=== PATIENT | female | born 1950 | race Caucasian/White ===

== ENCOUNTER 2017-08-06 16:29 | Emergency (ER) | payer BC ==
--- NOTE | 2017-08-06 17:55 | Emergency Department Record ---
History of Present Illness - General Chief Complaint: Hypertension Stated Complaint: HIGH BLOOD PRESSURE Time Seen by Provider: 08/06/17 17:31 Source: Patient Mode of Arrival: Ambulatory Limitations: No limitations - History of Present Illness Initial Comments: pt went for a procedure today and it was cancelled because pts bp is so high. it was 200/ pt states she took all her meds today. she is asymptomatic, no martin , no cp Onset/Timin -: Days(s) Timing: Unsure History of Same: Yes Improves With: Nothing Worsens With: Nothing Associated Symptoms: Denies other symptoms - [place] Coma Scale Eye Response: (4) Open spontaneously Motor Response: (6) Obeys commands Verbal Response: (5) Oriented [place] Total: 15 - Symptoms of Stroke Symptoms of stroke: Dizziness - Related Data Home Medications Medication Instructions Recorded Confirmed Last Taken Ascorbic Acid [Vitamin C] 500 mg PO DAILY 08/06/17 08/06/17 1 Day Ago ~08/05/17 B-Complex with Vitamin C [Vitamin 1 each PO DAILY 08/06/17 08/06/17 1 Day Ago B-Complex with Vit C] ~08/05/17 Calcium Carbonate/Vitamin D3 1 each PO DAILY 08/06/17 08/06/17 1 Day Ago [Calcium 500 + Vit D3 400 Tab] ~08/05/17 Cholecalciferol (Vitamin D3) 1,000 unit PO DAILY 08/06/17 08/06/17 1 Day Ago [Vitamin D3] ~08/05/17 Insulin Glargine,Hum.rec.anlog 160 unit SQ QAM 08/06/17 08/06/17 1 Day Ago [Lantus Solostar] ~08/05/17 Insulin Lispro [Humalog] 100 unit SQ ASDIR 08/06/17 08/06/17 1 Day Ago ~08/05/17 Allergies Allergy/AdvReac Type Severity Reaction Status Date / Time bacitracin Allergy Intermediate HIVES Verified 08/06/17 17:26 [From Neosporin ([id number])] bacitracin zinc Allergy Intermediate HIVES Verified 08/06/17 17:26 [From Neosporin ([id number])] neomycin sulfate Allergy Intermediate HIVES Verified 08/06/17 17:26 [From Neosporin ([id number])] polymyxin B Allergy Intermediate HIVES Verified 08/06/17 17:26 [From Neosporin ([id number])] latex Allergy RASH Verified 08/06/17 17:26 Travel Screening - Travel/Exposure Within Last 30 Days Have you traveled within the last 30 days?: No - Travel/Exposure Within Last Year Have you traveled outside the [place] in the last year?: No - Additonal Travel Details Have you been exposed to anyone with a communicable illness?: No - Travel Symptoms Symptom Screening: None Review of Systems Reviewed: No additional complaints except as noted below Constitutional: Reports: As per HPI. Denies: Chills, Fever, Malaise, Night sweats, Weakness, Weight change Eyes: Reports: As per HPI. Denies: Eye discharge, Eye pain, Photophobia, Vision change ENT: Reports: As per HPI. Denies: Congestion, Dental pain, Ear pain, Epistaxis , Hearing loss, Throat pain Respiratory: Reports: As per HPI. Denies: Cough, Dyspnea, Hemoptysis, Stridor, Wheezes Cardiovascular: Reports: As per HPI. Denies: Arrhythmia, Chest pain, Dyspnea on exertion, Edema, Murmurs, Orthopnea, Palpitations, Paroxysmal nocturnal dyspnea, Rheumatic Fever, Syncope Endocrine: Reports: As per HPI. Denies: Fatigue, Heat or cold intolerance, Polydipsia, Polyuria Gastrointestinal: Reports: As per HPI. Denies: Abdominal pain, Constipation, Diarrhea, Hematemesis, Hematochezia, Melena, Nausea, Vomiting Genitourinary: Reports: As per HPI. Denies: Abnormal menses, Discharge, Dyspareunia, Dysuria, Frequency, Hematuria, Incontinence, Retention, Urgency Musculoskeletal: Reports: As per HPI. Denies: Arthralgia, Back pain, Gout, Joint swelling, Myalgia, Neck pain Skin: Reports: As per HPI. Denies: Bruising, Change in color, Change in hair/ nails, Lesions, Pruritus, Rash Neurological: Reports: As per HPI. Denies: Abnormal gait, Confusion, Headache, Numbness, Paresthesias, Seizure, Tingling, Tremors, Vertigo, Weakness Psychiatric: Reports: As per HPI. Denies: Anxiety, Auditory hallucinations, Depression, Homicidal thoughts, Suicidal thoughts, Visual hallucinations Hematological/Lymphatic: Reports: As per HPI. 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 - Hx Genitourinary Disorders: No - ENDOCRINE Hx Endocrine Disorders: Yes Hx Diabetes: Yes - MUSCULOSKELETAL Hx Musculoskeletal Disorders: No - PSYCH Hx Psych Problems: No - HEMATOLOGY/ONCOLOGY Hx Hematology/Oncology Disorders: Yes Hx Cancer: Yes Hx Chemotherapy: No Hx Radiation Therapy: No Hx Blood Transfusions: Yes (after childbirth) Family Medical History Any Significant Family History?: Yes Hx Cancer: Mother *Cancer Comment: lymphoma Hx Diabetes: Mother Physical Exam - General General Appearance: Alert, Oriented x3, Cooperative, Mild distress - Head Head exam: Normal inspection - Eye Eye exam: Normal appearance, PERRL, EOMI Pupils: Normal accommodation - ENT ENT exam: Normal exam, Mucous membranes moist, Normal external ear exam, Normal orophraynx Ear exam: Normal external inspection. negative: External canal tenderness Nasal Exam: Normal inspection. negative: Discharge, Sinus tenderness Mouth exam: Normal external inspection, Tongue normal Teeth exam: Normal inspection. negative: Dental caries Throat exam: Normal inspection. negative: Tonsillar erythema, Tonsillar exudate - Neck Neck exam: Normal inspection, Full ROM. negative: Tenderness - Respiratory Respiratory exam: Normal lung sounds bilaterally. negative: Respiratory distress - Cardiovascular Cardiovascular Exam: Regular rate, Normal rhythm, Normal heart sounds - GI/Abdominal GI/Abdominal exam: Soft, Normal bowel sounds. negative: Tenderness - Rectal Rectal exam: Deferred - exam: Deferred - Extremities Extremities exam: Normal inspection, Full ROM, Normal capillary refill. negative: Tenderness - Back Back exam: Reports: Normal inspection, Full ROM. Denies: Muscle spasm, Rash noted, Tenderness - Neurological Neurological exam: Alert, CN II-XII intact, Normal gait, Oriented X3 - Psychiatric Psychiatric exam: Normal affect, Normal mood - Skin Skin exam: Dry, Intact, Normal color, Warm Course Vital Signs 08/06/17 17:16 Temperature 97.5 F L Pulse Rate 97 H Respiratory 20 Rate Blood Pressure 233/95 Pulse Ox 97 - Reevaluation(s) Reevaluation #1: 08/06/17 19:05 pts bp is163/77 Medical Decision Making - Lab Data Result diagrams: 08/06/17 18:10 08/06/17 18:10 Disposition Disposition: Discharge Clinical Impression: Hypertension Qualifiers: Hypertension type: essential hypertension Qualified Code(s): I10 - Essential ( primary) hypertension Disposition: Home, Self-Care Condition: (1) Good Instructions: Hypertension (ED) Additional Instructions: recheck blood pressure tomorrow at doctors office without fail. return sooner if worse. rest Forms: Patient Portal Access Quality - Quality Measures Quality Measures: N/A - Blood Pressure Screening Does Patient Have Any of the Following: Active Dx of HTN Blood Pressure Classification: Hypertensive Reading Systolic Measurement: 233 Diastolic Measurement: 95 Screening for High Blood Pressure: Patient Exclusion, Hx of HTN [[id number]]
[2017-08-06 18:20] LABS: BASO % 0.3 % (0-6); EOS % 1.2 % (0-6); GRAN % 71.2 % (47-80); HEMATOCRIT 40.5 % (35.0-47.0); HEMOGLOBIN 13.4 gm/dl (11.6-16.0); LYMPH % 19.4 % (16-45); MEAN CELL VOLUME 83.2 fl (81-97); MEAN CORPUSCULAR HEMOGLOBIN 27.5 pg (27-33); MEAN CORPUSCULAR HGB CONC 33.1 g/dl (32-36); MEAN PLATELET VOLUME 11.5 fl (7.4-10.4); MONO % 7.9 % (0-9); PLATELET COUNT 160 K/uL (130-400); RED BLOOD COUNT 4.87 M/uL (3.80-5.40); RED CELL DISTRIBUTION WIDTH 14.1 % (11.5-14.5); WHITE BLOOD COUNT W/O DIFF 7.6 K/uL (4.2-12.2)
[2017-08-06 18:31] LABS: BLOOD UREA NITROGEN 10 mg/dL (8-23)
[2017-08-06 18:32] LABS: CREATININE 0.6 mg/dL (0.5-0.9); EST GLOMERULAR FILTRATION RATE > 60 mL/min
[2017-08-06 18:34] LABS: GLUCOSE,RANDOM 255 mg/dL (74-109)
== END 2017-08-06 19:21 | disposition home or self-care (01) ==
LOC: ER 16:29
DX: I10 Essential (primary) hypertension (principal); R42 Dizziness and giddiness
CPT/HCPCS: 80048; 85025; 99283

== ENCOUNTER 2017-12-02 08:02 | Day surgery (SDC) | payer BC ==
[2017-12-02] MEDS ORDERED: PROPOFOL 10 MG/ML VIAL IV ONE (08:03)
[2017-12-02] MEDS ORDERED: LIDOCAINE 2% MDV (20MG/ML) 20ML VIAL IV ONE (08:03)
--- NOTE | 2017-12-03 13:40 | Operative Note ---
DATE OF SURGERY: 12/02/2017 OPERATION: COLONOSCOPY to small bowel anastomosis with cold biopsy forceps polypectomy x1 and cold snare polypectomy x1. INDICATION: Prior history of colon cancer involving the ascending colon. The patient had previous colon resection in 2014. She had a recheck colonoscopy 2 years ago and returned at this time for surveillance. She denies any problems from a GI standpoint. ANESTHESIA: Intravenous sedation was administered by the department of anesthesiology and included Diprivan titrated to effect. PROCEDURE: Following informed consent from this alert individual including a discussion of the risks and benefits of the procedure and an opportunity for the patient to ask questions, the patient was in the left lateral decubitus position. A digital rectal examination was performed. No abnormalities were noted. Following this, the Olympus [id number] video colonoscope was inserted into the rectum without resistance. The rectal mucosa had a normal appearance with normal folds and distensibility. The colonoscope was advanced up through the bowel to the small bowel anastomosis in the right colon. Throughout the bowel the mucosa appeared normal, the folds were normal, and the bowel was fairly well distensible. Sutures were noted at the anastomotic site. No other changes were appreciated. From this point, the colonoscope was then withdrawn. In the transverse colon there was a diminutive 3 mm polyp noted which was removed with cold biopsy forceps. In the rectum there was a 4 mm polyp noted which was removed with cold snare polypectomy. At the time of this dictation, it is not clear that the polyp was recovered. Retroflexion in the rectum was endoscopically normal. The colon preparation was good. The patient tolerated the procedure well and was returned to the recovery area in stable condition. IMPRESSION: 1. Status post right colon resection with retained sutures noted at the anastomotic site. 2. A 3 mm polyp in the transverse colon removed with biopsy forceps. 3. A 4 mm rectal polyp removed with cold snare polypectomy but not sure if this has yet been recovered. RECOMMENDATIONS: The patient was advised she should receive a copy of her pathology report at home in the next 2-3 weeks. If not, she was asked to call my office to review the results of testing today. Further recommendations forthcoming pending those results. Followup will also be with Dr. Leung. As always, thank you for allowing me to participate in the care of your patient. CC: Dr. Xochitl POLO
== END 2017-12-02 10:10 | disposition home or self-care (01) ==
LOC: HOP 08:02
PROVIDERS: ATTEND Internal Medicine Gastroenterology
DX: Z12.11 Encounter for screening for malignant neoplasm of colon (principal); Z85.038 Personal history of other malignant neoplasm of large intestine; D12.3 Benign neoplasm of transverse colon; K62.1 Rectal polyp; Z90.49 Acquired absence of other specified parts of digestive tract; I10 Essential (primary) hypertension; E11.9 Type 2 diabetes mellitus without complications; Z79.4 Long term (current) use of insulin; E03.9 Hypothyroidism, unspecified; E78.00 Pure hypercholesterolemia, unspecified